=== PATIENT | male | born 1965 | race African-American/Black ===

== ENCOUNTER 2018-09-06 19:41 | Emergency (ER) | payer MEDICARE ==
[2018-09-06 20:41] LABS: Bilirubin Negative (Negative); Blood, Urine Trace (Negative); Clarity CLEAR (Clear); Glucose, Urine (Dipstick) 250 mg/dL (Negative); Leukocyte Negative (Negative); Nitrite Negative (Negative); Protein, Urine (Dipstick) 30 mg/dL (Neg-Trace); Specific Gravity, Urine 1.024 (1.002-1.036); pH, Urine 5.5 (5.0-9.0)
[2018-09-06 20:42] LABS: Bacteria/HPF None Seen HPF (None Seen); Hyaline Casts/LPF 0-3 HYALINE CAST LPF (0-3 Hyaline); RBC/HPF 0-3 HPF (0-3); Squamous Epithelial None Seen HPF (0-3); WBC/HPF 0-3 HPF (0-3)
[2018-09-06 20:54] LABS: Syphilis Antibody Index 7.12 S/CO (<1.00 Non-Reactive)
[2018-09-06 21:37] LABS: Syphilis Antibody INDETERMINATE (Nonreactive); Syphilis Titer Non-Reactive (Negative)
[2018-09-06] MEDS ORDERED: Bicillin LA 1.2 MILLION UNITS/2 ML SYRINGE ONE ×2 (22:04→22:30)
[2018-09-08 01:21] LABS: Chlam.trachomatis by PCR,Urine Not Detected (NotDetected)
== END 2018-09-06 23:06 | disposition home or self-care (01) ==
LOC: ERS 19:41
DX: Z20.2 Contact with and (suspected) exposure to infections with a predominantly sexual mode of transmission (principal); E11.9 Type 2 diabetes mellitus without complications; Z79.84 Long term (current) use of oral hypoglycemic drugs
CPT/HCPCS: 36415; 81003; 81015; 86593; 86780; 87491; 87591; 96372; J0561

== ENCOUNTER 2018-09-16 17:19 | Emergency (ER) | payer MEDICARE ==
[2018-09-16 18:43] LABS: Bilirubin Small (Negative); Blood, Urine Negative (Negative); Clarity CLOUDY (Clear); Glucose, Urine (Dipstick) Negative (Negative); Leukocyte Negative (Negative); Nitrite Negative (Negative); Protein, Urine (Dipstick) 30 mg/dL (Neg-Trace); Specific Gravity, Urine 1.028 (1.002-1.036)
[2018-09-16 18:46] LABS: Bacteria/HPF None Seen HPF (None Seen); Hyaline Casts/LPF 0-3 HYALINE CAST LPF (0-3 Hyaline); RBC/HPF 0-3 HPF (0-3); Squamous Epithelial None Seen HPF (0-3); WBC/HPF 0-3 HPF (0-3)
== END 2018-09-16 20:50 | disposition home or self-care (01) ==
LOC: ERS 17:19
DX: A53.9 Syphilis, unspecified (principal); E11.9 Type 2 diabetes mellitus without complications; Z79.84 Long term (current) use of oral hypoglycemic drugs
CPT/HCPCS: 81003; 81015; 99283